=== PATIENT | female | born 1995 | race American Indian/Alaskan Native ===

== ENCOUNTER 2017-09-11 13:52 | Outpatient (CLI) | payer OTHER ==
[2017-09-11] MEDS ORDERED: PROVENTIL IH ONE (14:32)
== END 2017-09-11 13:53 | disposition home or self-care (01) ==
LOC: PF 13:52
PROVIDERS: ATTEND Internal Medicine
DX: Z02.71 Encounter for disability determination (principal); R06.00 Dyspnea, unspecified; M08.00 Unspecified juvenile rheumatoid arthritis of unspecified site; Z87.891 Personal history of nicotine dependence
CPT/HCPCS: 94060; 94640

== ENCOUNTER 2021-10-17 16:49 | Emergency (ER) | payer MEDICAID, OTHER | END 2021-10-17 17:38 | disposition left against medical advice (07) | LOC: ED 16:49 | DX: O26.899 Other specified pregnancy related conditions, unspecified trimester (principal); Z3A.00 Weeks of gestation of pregnancy not specified; Z53.21 Procedure and treatment not carried out due to patient leaving prior to being seen by health care provider ==